=== PATIENT | male | born 1945 | race Caucasian/White ===

== ENCOUNTER → 2020-05-15 | Outpatient (CLI) | payer MEDICARE ==
--- NOTE | 2020-05-15 16:49 | RAD ---
EXAMINATION: SHOULDER 2+V LEFT CLINICAL HISTORY: Reason: PAIN IN LEFT SHOULDER / Spl. Instructions: / History: TECHNIQUE: SHOULDER 2+V LEFT Number of different views (projections): 4 COMPARISON: None FINDINGS: Mild glenohumeral joint space narrowing with small anterior marginal osteophytes. Mild acromioclavicular degenerative changes. No acute fracture Chronic reactive changes in the greater tuberosity. Acromiohumeral interval maintained. IMPRESSION: Mild glenohumeral and acromioclavicular degenerative changes. Electronically signed by: Manpreet José DO (05/15/2020 4:46 PM) [id number]
== END | disposition home or self-care (01) ==
LOC: DXRAD 15:24
PROVIDERS: ATTEND Orthopaedic Surgery
DX: M19.012 Primary osteoarthritis, left shoulder (principal); M25.712 Osteophyte, left shoulder
CPT/HCPCS: 73030